=== PATIENT | female | born 1985 | race Hispanic/Latino ===

== ENCOUNTER 2017-08-30 13:38 | Outpatient (CLI) | payer MEDICAID ==
[2017-08-30 13:58] VITALS: BP 127/66
[2017-08-30 15:42] LABS: Bacteria,Urine 4+ /HPF (Negative); Bilirubin,Urine NEG (Negative); Blood,Urine NEG (Negative); Color,Urine Yellow (Yellow); Mucus,Urine FEW /HPF; Protein,Urine <15 mg/dL mg/dL (Negative); Urobilinogen,Urine < 2.0 mg/dL (<2.0)
== END 2017-08-30 15:31 | disposition home or self-care (01) ==
LOC: TRG 13:38
PROVIDERS: ATTEND Obstetrics & Gynecology
DX: Z34.93 Encounter for supervision of normal pregnancy, unspecified, third trimester (principal); Z3A.28 28 weeks gestation of pregnancy
CPT/HCPCS: 59025; 81001

== ENCOUNTER 2017-10-29 09:43 | Outpatient (CLI) | payer MEDICAID ==
[2017-10-29] MEDS ORDERED: LACTATED RINGERS 1,000 ML IV SCH (11:00)
[2017-10-29 11:45] LABS: Bacteria,Urine 2+ /HPF (Negative); Bilirubin,Urine NEG (Negative); Blood,Urine NEG (Negative); Color,Urine Amber (Yellow); Mucus,Urine 2+ /HPF; Urobilinogen,Urine < 2.0 mg/dL (<2.0)
[2017-10-29] MEDS ORDERED: ZOFRAN IV ONE (12:47)
== END 2017-10-29 12:30 | disposition home or self-care (01) ==
LOC: TRG 09:43
PROVIDERS: ATTEND Obstetrics & Gynecology
DX: O26.893 Other specified pregnancy related conditions, third trimester (principal); E86.0 Dehydration; Z3A.38 38 weeks gestation of pregnancy
CPT/HCPCS: 59025; 81001; 96360; 96361; 96374; J2405; J7120

== ENCOUNTER 2017-11-08 05:52 | Inpatient (IN) | payer MEDICAID ==
[2017-11-08] MEDS ORDERED: PEPCID IV ONE (07:25)
[2017-11-08] MEDS ORDERED: BICITRA PO ONE (07:25)
[2017-11-08] MEDS ORDERED: REGLAN IV ONE (07:25)
[2017-11-08] MEDS: LACTATED RINGERS 1,000 ML IV SCH ×2 (07:30→08:00)
--- NOTE | 2017-11-08 07:45 | Anesthesia Consultation ---
Anesthesia Consult and Med Hx Date of service: 11/08/17 - Airway Anesthetic Teeth Evaluation: Good ROM Head & Neck: Adequate Mental/Hyoid Distance: Adequate Mallampati Class: Class II Intubation Access Assessment: Probably Good - Pre-Operative Health Status ASA Pre-Surgery Classification: ASA3 Proposed Anesthetic Plan: Epidural, Spinal - Pulmonary Hx Asthma: No COPD: No Hx Pneumonia: No - Cardiovascular System Hx Hypertension: No - Central Nervous System Hx Seizures: No Hx Psychiatric Problems: No - Endocrine Hx Renal Disease: No Hx End Stage Renal Disease: No Hx Hypothyroidism: No Hx Hyperthyroidism: No - Hematic Hx Anemia: No Hx Sickle Cell Disease: No - Other Systems Hx Alcohol Use: No Hx Obesity: Yes (BMI 45.0)
[2017-11-08] MEDS ORDERED: BENADRYL IV PRN (07:46)
[2017-11-08] MEDS ORDERED: TORADOL IV PRN (07:46)
[2017-11-08] MEDS ORDERED: DILAUDID IV PRN (07:46)
[2017-11-08] MEDS ORDERED: ZOFRAN IV PRN (07:46)
[2017-11-08] MEDS ORDERED: PHENERGAN PO PRN (07:46)
[2017-11-08] MEDS ORDERED: NARCAN 0.4 MG/1 ML IV PRN ×2 (07:46→11:36)
[2017-11-08] MEDS ORDERED: PHENERGAN PR PRN (07:46)
--- NOTE | 2017-11-08 07:46 | Anesthesia Day of Surgery ---
Anesthesia Day of Surgery - Day of Surgery Patient Examined: Yes Patient H&P Reviewed: Yes Patient is NPO: Yes
--- NOTE | 2017-11-08 07:51 | History and Physical Report ---
History of Present Illness Date of examination: 11/08/17 Date of admission: 11/08/17 05:52 Chief complaint: I'm here for my History of present illness: Patient is a 32 year old who presents for elective repeat at 39.2 weeks with EDC11/13/17. Patient has had an uncomplicated course. She entered care at 10 weeks. Past History Past Medical History: no pertinent history Past Surgical History: no surgical history Social history: - Obstetrical History Expected Date of Delivery: 11/13/17 Actual Gestation: 39 Week(s) 2 Day(s) : 2 Para: 1 Number of Living Children: 1 Medications and Allergies Allergies Allergy/AdvReac Type Severity Reaction Status Date / Time No Known Allergies Allergy Verified 04/22/16 21:26 Home Medications Medication Instructions Recorded Confirmed Last Taken Type oxyCODONE /ACETAMINOPHEN [Percocet 1 tab PO Q6HR PRN #40 tablet 04/28/16 Unknown Rx 5/325] Ibuprofen [Motrin 800 MG tab] 800 mg PO Q6H PRN #30 tablet 04/29/16 11/08/17 Unknown Rx Formula Tablet 1 tab PO QDAY 11/08/17 11/08/17 1 Week Ago History ~11/01/17 Active Meds: Active Medications Diphenhydramine HCl (Benadryl) 12.5 mg IV Q2H PRN PRN Reason: Itching Hydromorphone HCl (Dilaudid) 0.5 mg IV Q5M PRN PRN Reason: Breakthrough Pain Cefazolin Sodium (Ancef/Sterile Water 2 Gm/20 Ml) 2 gm in 20 mls @ 80 mls/hr IV PREOP NR; Protocol Stop: 11/08/17 23:59 Lactated Ringer's (Lactated Ringers) 1,000 mls @ 2,250 mls/hr IV PREOP JOY Stop: 11/09/17 08:27 Oxytocin/Sodium Chloride (Pitocin/Ns 20 Unit/1000ml Drip) 20 units in 1,000 mls @ 0 mls/hr IV TITR JOY Ketorolac Tromethamine (Toradol) 30 mg IV Q6H PRN PRN Reason: Pain, Moderate (4-6) Stop: 11/13/17 07:45 Naloxone HCl (Narcan 0.4 Mg/1 Ml) 0.2 mg IV Q2MIN PRN PRN Reason: Res Rate </= 8 or 02 SAT < 92% Ondansetron HCl (Zofran) 4 mg IV Q8H PRN PRN Reason: Nausea And Vomiting Promethazine HCl (Phenergan) 25 mg PO Q6H PRN PRN Reason: Nausea And Vomiting Review of Systems All systems: negative Constitutional: weight gain Genitourinary: pelvic pain, contractions Rectal Exam: deferred - Vital Signs Vital signs: Vital Signs Pulse Pulse Ox 95 H 97 11/08/17 06:50 11/08/17 06:50 Temp Pulse Resp BP Pulse Ox 91 H 119/79 99 11/08/17 07:50 11/08/17 07:34 11/08/17 07:50 - Physical Exam Breasts: Cardiovascular: Regular rate, Normal S1, Normal S2 Lungs: Positive: Clear to auscultation, Normal air movement Abdomen: Positive: normal appearance, soft, normal bowel sounds. Negative: distention, tenderness Genitourinary (Female): Positive: normal external genitalia, normal perenium Vulva: both: normal Vagina: Positive: normal moisture. Negative: discharge Cervix: Negative: lesion, discharge Uterus: Positive: normal size, normal contour Adnexa: both: normal Anus/Rectum: Positive: normal perianal skin, heme negative. Negative: rectal mass, hemorrhoids Extremities: Deep Tendon Reflex Grade: Normal +2 - Obstetrical FHR: auscultation normal Cervical Dilatation: 0 Cervical Effacement Percentage: 50 station: -3 Results All other labs normal. Assessment and Plan IUP at 39.2 weeks here for elective repeat . Doing well. Plan for surgery. Consents signed and placed on chart.
[2017-11-08 07:56] LABS: Basophils # (Auto) 0.1 K/mm3 (0.0-0.1); Basophils % (Auto) 0.6 % (0.0-1.8); Eosinophils # (Auto) 0.1 K/mm3 (0.0-0.4); Eosinophils % (Auto) 0.6 % (0.0-4.3); Hematocrit 35.7 % (30.3-42.9); Lymphocytes % (Auto) 15.1 % (13.4-35.0); Mean Corpuscular HGB Conc 34 % (30-34); Mean Corpuscular Volume 75 fl (79-97); Monocytes % (Auto) 7.8 % (0.0-7.3); Platelet Count 175 K/mm3 (140-440); Red Blood Count 4.79 M/mm3 (3.65-5.03); Red Cell Distribution Width 18.3 % (13.2-15.2)
[2017-11-08] MEDS ORDERED: ANCEF/STERILE WATER 2 GM/20 ML 2 GM/20 ML SYRINGE IV NR (08:00)
[2017-11-08] MEDS ORDERED: PITOCin/NS 20 UNIT/1000ML DRIP 20 UNITS/1,000 ML BAG IV SCH ×2 (08:00→11:36)
[2017-11-08] MEDS ORDERED: SODIUM CHLORIDE FLUSH SYRINGE 10 ML IV NR ×2 (08:00→11:36)
[2017-11-08 08:05] LABS: Mean Corpuscular Hemoglobin 25 pg (28-32)
[2017-11-08] MEDS ORDERED: ANCEF/STERILE WATER 2 GM/20 ML IV ONE (08:50)
[2017-11-08] MEDS ORDERED: WATER FOR IRRIG STERILE IR ONE (09:06)
[2017-11-08] MEDS ORDERED: NACL 0.9% IR ONE (09:06)
[2017-11-08] MEDS ORDERED: NEO SYNEPHRINE/NS Syringe(OR USE) IV ONE (09:23)
[2017-11-08] MEDS ORDERED: MORPHINE ONE (09:31)
[2017-11-08] MEDS ORDERED: TUCKS PAD TP PRN (11:36)
[2017-11-08] MEDS ORDERED: MORPHINE IV PRN (11:36)
[2017-11-08] MEDS ORDERED: LANSINOH TP PRN (11:36)
[2017-11-08] MEDS ORDERED: PRENATAL VITAMIN PO SCH (11:36)
[2017-11-08] MEDS ORDERED: D5LR 1,000 ML IV SCH (11:36)
--- NOTE | 2017-11-08 17:31 | Procedure Note ---
OB Delivery Note - Delivery Date of Delivery: 11/08/17 Surgeon: LEIGHTON HARRIS Estimated blood loss: other (750) - Section Preop diagnosis: repeat Postop diagnosis: same section procedure: repeat low transverse Disposition: PACU Complications: none Narrative: see op report - Infant A at 1 minute: 8 at 5 minutes: 9 Infant Gender: Female (7 pounds 2 ounces 3442 grams)
[2017-11-08] MEDS: PERCOCET 5/325 PO PRN (18:32)
[2017-11-08] MEDS: MOTRIN PO PRN (18:32)
[2017-11-08 21:19] LABS: Hematocrit 31.5 % (30.3-42.9); Hemoglobin 10.6 gm/dl (10.1-14.3)
[2017-11-09] MEDS: PERCOCET 5/325 PO PRN ×2 (03:59→10:09)
[2017-11-09] MEDS: MOTRIN PO PRN ×2 (10:09→20:03)
--- NOTE | 2017-11-09 11:25 | Progress Note ---
Assessment and Plan A: POD#1 s/p repeat section at term, asymptomatic anemia, morbid obesity, productive cough P: Claritin, Chest X-ray, begin bowel regimen, abdominal binder. Continue to monitor clinically. Subjective - Subjective Date of service: 11/09/17 Principal diagnosis: s/p repeat , morbid obesity Interval history: Pt reports cough productive of green sputum this morning. Otherwise no complaints Patient reports: appetite normal, voiding normally, flatus, ambulating normally , no bowel movement : doing well Objective - Vital Signs Latest vital signs: Vital Signs Temp Pulse Resp BP BP Pulse Ox 11/09/17 10:00 98.7 F 92 H 20 110/59 94 11/09/17 05:51 97.2 F L 84 17 103/55 96 11/08/17 20:40 97.8 F 86 19 105/63 94 11/08/17 17:59 98.3 F 86 18 103/58 94 11/08/17 11:25 98.6 F 93 H 18 108/55 99 Intake and Output 11/08/17 11/09/17 11/09/17 22:59 06:59 14:59 Output Total 300 Balance -300 Output: Urine 300 Void 300 Other: Total, Output Amount 300 # Voids Void 1 - Exam Breasts: Present: deferred Cardiovascular: Present: Regular rate Lungs: Present: Clear to auscultation Abdomen: Present: soft (obese ) Uterus: Present: fundal height at umbilicus Extremities: Present: normal Incision: Present: dressed
[2017-11-09] MEDS ORDERED: DEEP SEA NS PRN (11:26)
[2017-11-09] MEDS ORDERED: CLARITIN PO SCH (12:00)
--- NOTE | 2017-11-09 12:56 | XRay Report ---
Single chest: History: Productive cough. Findings: Normal cardiomediastinal silhouette. Trachea is midline. No consolidation, pneumothorax or pleural effusion. Impression: No acute cardiopulmonary findings
[2017-11-09] MEDS: MILK OF MAGNESIA PO SCH ×2 (14:16→20:02)
--- NOTE | 2017-11-09 19:43 | Progress Note ---
Subjective Date of service: 11/09/17 Principal diagnosis: s/p repeat , morbid obesity Interval history: Pt doing well. No anesthetic related complaints. Objective - Constitutional Vitals: Vital Signs - 12hr 11/09/17 11/09/17 10:00 16:47 Temperature 98.7 F Pulse Rate 92 H 91 H Respiratory 20 22 Rate Blood Pressure 110/59 117/61 [Right] O2 Sat by Pulse 94 96 Oximetry - Labs CBC & Chem 7: 11/08/17 20:53
[2017-11-10] MEDS: MOTRIN PO PRN (06:16)
[2017-11-10 09:23] VITALS: BP 114/57
--- NOTE | 2017-11-10 12:11 | Progress Note ---
Assessment and Plan A: POD#2 s/p repeat section at term, asymptomatic anemia, morbid obesity,Seasonal allergies P: Per pt request, discharge home today with follow up in 1 week for staple removal Subjective - Subjective Date of service: 11/10/17 Principal diagnosis: s/p repeat , morbid obesity Interval history: Pt feeling well today. She would like to go home. + bowel movement overnight. Chest x-ray negative. Coughing less today. Patient reports: appetite normal, voiding normally, pain well controlled, flatus , bowel movement, ambulating normally, no nauseated : doing well Objective - Vital Signs Latest vital signs: Vital Signs Temp Pulse Resp BP Pulse Ox 11/10/17 09:22 98.0 F 69 20 114/57 11/10/17 01:05 98.0 F 87 20 106/54 94 11/09/17 16:47 91 H 22 117/61 96 - Exam Breasts: Present: deferred Cardiovascular: Present: Regular rate Lungs: Present: Clear to auscultation Abdomen: Present: soft Uterus: Present: fundal height below umbilicus Extremities: Present: edema (trace) Incision: Present: intact (with jaime )
--- NOTE | 2017-11-10 12:12 | Discharge Summary ---
Providers - Providers Date of Admission: 11/08/17 05:52 Date of discharge: 11/10/17 Attending physician: LEIGHTON HARRIS Primary care physician: LEIGHTON HARRIS Hospitalization Reason for admission: section Delivery: Procedure: section, repeat low transverse Procedure details: Please see operative report. Incision: intact Other procedures: none complications: none Discharge diagnosis: IUP at term delivered baby: female Hospital course: Pt was admitted for repeat section which she tolerated well. Her postoperative course was uncomplicated and she met discharge criteria on POD#2. She will follow up in 1 week for staple removal. Condition at discharge: Stable Disposition: - TO HOME OR SELFCARE - Discharge Diagnoses (1) Morbid obesity Status: Acute (2) S/P section Status: Acute (3) Term of female Status: Acute Plan - Discharge Medications Prescriptions: Ibuprofen [Motrin] 800 mg PO Q8HR PRN #30 tablet PRN Reason: Pain oxyCODONE /ACETAMINOPHEN [Percocet 5/325] 1 tab PO Q6HR PRN #40 tablet PRN Reason: Pain - Provider Discharge Summary Activity: routine, no sex for 6 weeks, no heavy lifting 4 weeks, no strenuous exercise Diet: routine Instructions: routine Additional instructions: [] Smoking cessation referral if applicable(refer to patient education folder for contact #) [] Refer to [facility] Booklet Call your doctor immediately for: * Fever > 100.5 * Heavy vaginal bleeding ( >1 pad per hour) * Severe persistent headache * Shortness of breath * Reddened, hot, painful area to leg or breast * Drainage or odor from incision. * Keep incision clean and dry at all times and follow doctor's instructions regarding bathing/showering - Follow up plan Follow up: LEIGHTON HARRIS MD [Primary Care Provider] - 7 Days
== END 2017-11-10 13:25 | disposition home or self-care (01) | DRG 765 ==
LOC: APU 05:52 → OB 11:30
PROVIDERS: ADMIT Obstetrics & Gynecology; ATTEND Obstetrics & Gynecology
PROC: 10D00Z1 Extraction of Products of Conception, Low, Open Approach (ICD-10-PCS; principal; 2017-11-08)
DX: O34.211 Maternal care for low transverse scar from previous cesarean delivery (principal); Z68.41 Body mass index [BMI] 40.0-44.9, adult; Z3A.39 39 weeks gestation of pregnancy; Z37.0 Single live birth; O90.81 Anemia of the puerperium; D64.9 Anemia, unspecified; O99.214 Obesity complicating childbirth; E66.01 Morbid (severe) obesity due to excess calories; O90.89 Other complications of the puerperium, not elsewhere classified; J30.2 Other seasonal allergic rhinitis
CPT/HCPCS: 36415; 71045; 85014; 85018; 85025; 86850; 86900; 86901; J0690; J2270; J2370; J2590; J2765; J7120; J7121